=== PATIENT | male | born 1990 | race Caucasian/White ===

== ENCOUNTER 2016-08-06 10:50 | Observation (INO) | payer MEDICAID, OTHER ==
[2016-08-06] MEDS ORDERED: BENADRYL 50 MG/ML ONE (10:57)
[2016-08-06] MEDS ORDERED: Sodium Chloride 0.9% 1000 ML 1,000 ML ONE ×2 (10:57→12:32)
[2016-08-06] MEDS ORDERED: EPINEPHRINE 1:1000 1 ML AMP ONE (10:57)
[2016-08-06] MEDS ORDERED: Pepcid 20 MG VIAL IV ONE ×2 (10:57→11:03)
[2016-08-06] MEDS ORDERED: solu-MEDROL 125 MG ONE (10:57)
[2016-08-06] MEDS ORDERED: Sodium Chloride 0.9% 1000 ML 1,000 ML IV STA ×2 (11:02→12:33)
[2016-08-06] MEDS ORDERED: BENADRYL 50 MG/ML IV ONE ×2 (11:03→11:07)
[2016-08-06] MEDS ORDERED: EPINEPHRINE 1:1000 1 ML AMP IM ONE (11:03)
[2016-08-06] MEDS ORDERED: solu-MEDROL 125 MG IV ONE (11:03)
[2016-08-06 11:07] LABS: VBG BASE EXCESS 0.1 (-2.0-2.0); VBG CARBOXYHEMOGLOBIN 1.8 % T HGB (0.0-6.9); VBG HCO3- 22.1 meq/L (22-28); VBG HEMOGLOBIN 16.6; VBG POTASSIUM 3.6 (3.5-5.1); VBG pH 7.49 (7.32-7.42)
[2016-08-06 11:21] LABS: BASOPHIL % 0.3 % (0.0-0.4); Eosinophil % 0.6 % (0.00-5.0); Granulocytes % 41.8 % (36.0-66.0); Lymphocytes % 50.1 % (24.0-44.0); Mean Cell Volume 88.3 fl (78-100); Mean Corpuscular Hemoglobin 30.4 pg (26-32); Mean Platelet Volume 10.1 fl (6-9.5); Monocytes % 7.2 % (0.0-12.0); Platelet Count 300 K/mm3 (150-450); Red Blood Count 5.29 M/mm3 (4.1-5.6); Red Cell Distribution Width 13.1 % (11.5-14.0); White Blood Count 7.2 K/mm3 (4.0-10.5)
[2016-08-06 11:39] LABS: ALBUMIN 3.9 g/dL (3.4-5.0); ALKALINE PHOSPHATASE 70 U/L (46-116); ANION GAP 17.4 MEQ/L (5-15); BILIRUBIN,TOTAL 0.5 mg/dL (0.2-1.0); BLOOD UREA NITROGEN 13 mg/dL (9-20); CHLORIDE 105 mEq/L (98-107); Carbon Dioxide 20.6 mEq/L (21-32); Glucose 146 MG/DL (70-110); Potassium 3.6 mEq/L (3.5-5.1); SGOT/AST 16 U/L (15-37); SGPT/ALT 18 U/L (12-78); SODIUM 139 mEq/L (136-145); Total Protein 7.5 gm/dL (6.4-8.2)
[2016-08-06 11:40] LABS: ACETAMINOPHEN < 2.0 ug/ml (10-30)
--- NOTE | 2016-08-06 11:46 | ERPHSYRPT ---
- History of Present Illness Time Seen by Provider: 08/06/16 11:02 Source: patient, family (mother) Patient Subjective Stated Complaint: PT REPORTS WAKING UP AARON 0900 WITH A HEADACHE-PT TOOK 2 ASPIRIN-AARON 30 MIN LATER BEGAN HAVING HIVES ET ITCHING-CAME TO THE ED WHERE HE GOT DIZZY IN ER REGISTRATION ET PASSED OUT-REPORTS HITTING HIS HEAD ON THE WALL Triage Nursing Assessment: PT PALE ET DIAPHORETIC UPON ARRIVAL OF ED STAFF-C- COLLAR PLACED ET PT BROUGHT BACK FOR TX-PT A & O X 3-ANSWERING QUESTIONS-RESP EASY ET NONLABORED-PT MOVING ALL EXTREMITIES WITH EASE-PUPILS ROUND ET REACTIVE- PT DENIES ANY PAIN AT THIS TIME Physician History: CC: allergic reaction Hx: 25 y/o patient brought to ER per mother. Apparently had some headache which is not unusual for him. He took 2 asa last night and 3 ASA this AM. He awoke with continued headache. No fever or chills. No N/T/W. No N/V. After taking asa this AM he had redness, itching, and diarrhea. Brought to ER. In [place] he passed out and hit his head on the door frame. Initially stated no neck pain but later had some neck pain. Was brought back to ER. Red and shaking chills. No throat swelling or diff breathing. No wheezing or diff breathing. No hx of anaphylaxis in the past. Mother reported hx of substance use in the past. Pt denies any other ingestion or substance today. Timing/Duration: today Severity: severe Allergies/Adverse Reactions: aspirin Allergy (Severe, Verified 08/06/16 13:01) ANAPHALAXIS Home Medications: No Home Meds 1 ea UD 08/06/16 [History] Hx Tetanus, Diphtheria Vaccination/Date Given: No Hx Influenza Vaccination/Date Given: No Hx Pneumococcal Vaccination/Date Given: No Immunizations Up to Date: Yes - Review of Systems Constitutional: No Fever, No Chills Eyes: No Symptoms Ears, Nose, & Throat: No Symptoms Respiratory: No Cough, No Dyspnea Cardiac: Syncope, No Chest Pain, No Edema Abdominal/Gastrointestinal: Diarrhea, No Abdominal Pain, No Nausea, No Vomiting Genitourinary Symptoms: No Dysuria Skin: No Rash Neurological: No Headache All Other Systems: Reviewed and Negative - Past Medical History Pertinent Past Medical History: No - Past Surgical History Past Surgical History: No - Social History Smoking Status: Never smoker Exposure to second hand smoke: No Drug Use: none Patient Lives Alone: No - Nursing Vital Signs Nursing Vital Signs: Initial Vital Signs Temperature 97.5 F Temperature Source Oral Pulse Rate 86 Respiratory Rate 16 Blood Pressure [Right Arm] 97/56 Pain Intensity 0 - Physical Exam General Appearance: alert Eye Exam: PERRL/EOMI Ears, Nose, Throat Exam: moist mucous membranes Neck Exam: normal inspection, midline tenderness (mild) Respiratory Exam: normal breath sounds, lungs clear, No wheezing Cardiovascular Exam: regular rate/rhythm, No murmur Gastrointestinal/Abdomen Exam: soft, No tenderness, No distention Male Genitalia Exam: normal genitalia Back Exam: normal inspection, No vertebral tenderness Extremity Exam: normal inspection, normal range of motion Neurologic Exam: alert, oriented x 3, cooperative, sensation nml, No motor deficits Skin Exam: warm, dry, rash (redness all over body with urticaria and hives) SpO2 Interpretation: normal SpO2: 97 Oxygen Delivery: Room Air - Course Nursing assessment & vital signs reviewed: Yes EKG Interpreted by Me: RATE (76), Sinus Rhythm, NORMAL AXIS, Right Bundle Branch Block (incomplete), Non-specific ST Changes - Radiology Exams cxr X-ray Interpretation: Reviewed by me, Negative Ordered Tests: Active Orders 24 hr Category Date Time Status Accucheck STAT Care 08/06/16 11:02 Active Associate Professor Of Library Science STAT Care 08/06/16 11:02 Active Cervical Collar Application STAT Care 08/06/16 11:05 Active Clean Catch Urine Specimen STAT Care 08/06/16 11:02 Active EKG-ER Only STAT Care 08/06/16 11:02 Inactive EKG-ER Only STAT Care 08/06/16 11:03 Active EKG-ER Only STAT Care 08/06/16 11:47 Active IV Insertion STAT Care 08/06/16 11:02 Active CERVICAL SPINE WO CONTRAST [CT] Stat Exams 08/06/16 11:04 Completed CHEST 1 VIEW (PORTABLE) Stat Exams 08/06/16 11:03 Completed HEAD WITHOUT CONTRAST [CT] Stat Exams 08/06/16 11:04 Completed ACETAMINOPHEN Stat Lab 08/06/16 11:05 Completed CBC W DIFF Stat Lab 08/06/16 11:05 Completed CMP Stat Lab 08/06/16 11:05 Completed Ethyl Alcohol,Urine Stat Lab 08/06/16 12:00 Completed SALICYLATE Stat Lab 08/06/16 11:05 Completed UA W/ MICROSCOPIC Stat Lab 08/06/16 12:00 Completed Urine Triage Profile Stat Lab 08/06/16 12:00 Completed VENOUS BLOOD GAS Urgent Lab 08/06/16 11:05 Completed Medication Summary Generic Name Dose Route Start Last Admin Trade Name Gerry PRN Reason Stop Dose Admin Sodium Chloride 1,000 mls @ 999 mls/hr 08/06/16 12:33 08/06/16 12:34 Sodium Chloride 0.9% 1000 Ml IV 08/06/16 13:33 999 mls/hr .Q1H1M STA Administration Discontinued Medications Generic Name Dose Route Start Last Admin Trade Name Gerry PRN Reason Stop Dose Admin Diphenhydramine HCl Confirm 08/06/16 10:57 Benadryl 50 Mg/Ml Administered 08/06/16 10:58 Dose 50 mg .ROUTE .STK-MED ONE Diphenhydramine HCl 25 mg 08/06/16 11:03 08/06/16 11:21 Benadryl 50 Mg/Ml IV 08/06/16 11:04 Not Given STAT ONE Diphenhydramine HCl 50 mg 08/06/16 11:07 08/06/16 11:20 Benadryl 50 Mg/Ml IV 08/06/16 11:08 50 mg STAT ONE Administration Epinephrine HCl Confirm 08/06/16 10:57 Epinephrine 1:1000 1 Ml Amp Administered 08/06/16 10:58 Dose 1 mg .ROUTE .STK-MED ONE Epinephrine HCl 0.3 mg 08/06/16 11:03 08/06/16 11:20 Epinephrine 1:1000 1 Ml Amp IM 08/06/16 11:04 0.3 mg STAT ONE Administration Famotidine Confirm 08/06/16 10:57 Pepcid 20 Mg Vial Administered 08/06/16 10:58 Dose 20 mg IV .STK-MED ONE Famotidine 20 mg 08/06/16 11:03 08/06/16 11:20 Pepcid 20 Mg Vial IV 08/06/16 11:04 20 mg STAT ONE Administration Sodium Chloride Confirm 08/06/16 10:57 Sodium Chloride 0.9% 1000 Ml Administered 08/06/16 10:58 Dose 1,000 mls @ ud .ROUTE .STK-MED ONE Sodium Chloride 1,000 mls @ 999 mls/hr 08/06/16 11:02 08/06/16 11:20 Sodium Chloride 0.9% 1000 Ml IV 08/06/16 12:02 999 mls/hr .Q1H1M STA Administration Sodium Chloride Confirm 08/06/16 12:32 Sodium Chloride 0.9% 1000 Ml Administered 08/06/16 12:33 Dose 1,000 mls @ ud .ROUTE .STK-MED ONE Methylprednisolone Sodium Succinate Confirm 08/06/16 10:57 Solu-Medrol 125 Mg Administered 08/06/16 10:58 Dose 125 mg .ROUTE .STK-MED ONE Methylprednisolone Sodium Succinate 125 mg 08/06/16 11:03 08/06/16 11:20 Solu-Medrol 125 Mg IV 08/06/16 11:04 125 mg STAT ONE Administration Lab/Rad Data: Laboratory Result Diagrams 08/06/16 11:05 08/06/16 11:05 Laboratory Results 08/06/16 08/06/16 08/06/16 Range/Units 12:00 12:00 12:00 WBC (4.0-10.5) K/mm3 RBC (4.1-5.6) M/mm3 Hgb (12.5-18.0) gm/dl Hct (42-50) % MCV (78-100) fl MCH (26-32) pg MCHC (32-36) g/dl RDW (11.5-14.0) % Plt Count (150-450) K/mm3 MPV (6-9.5) fl Gran % (36.0-66.0) % Lymphocytes % (24.0-44.0) % Monocytes % (0.0-12.0) % Eosinophils % (0.00-5.0) % Basophils % (0.0-0.4) % Basophils # (0-0.4) VBG pH (7.32-7.42) VBG pCO2 at Pat Temp (42-55) mm/Hg VBG pO2 at Pat Temp (25-40) mm/Hg VBG HCO3 (22-28) meq/L VBG O2 Sat (Ashley) (95-100) VBG Base Excess (-2.0-2.0) VBG Hemoglobin VBG Carboxyhemoglobin (0.0-6.9) % T HGB POC Potassium (3.5-5.1) Sodium (136-145) mEq/L Potassium (3.5-5.1) mEq/L Chloride (98-107) mEq/L Carbon Dioxide (21-32) mEq/L Anion Gap (5-15) MEQ/L BUN (9-20) mg/dL Creatinine (0.55-1.30) mg/dl Estimated GFR ML/MIN Glucose (70-110) MG/DL Calcium (8.5-10.1) mg/dL Total Bilirubin (0.2-1.0) mg/dL AST (15-37) U/L ALT (12-78) U/L Alkaline Phosphatase (46-116) U/L Serum Total Protein (6.4-8.2) gm/dL Albumin (3.4-5.0) g/dL Ur Collection Type VOID Urine Color DARK YELLOW (YELLOW) Urine Appearance HAZY (CLEAR) Urine pH 6.0 6.0 (5-6) Ur Specific [place] 1.025 (1.005-1.025) Urine Protein 30 (Negative) Urine Glucose (UA) NEGATIVE (NEGATIVE) mg/dL Urine Ketones SMALL-15 (NEGATIVE) Urine Nitrite NEGATIVE (NEGATIVE) Urine Bilirubin SMALL (NEGATIVE) Urine Urobilinogen 1 (0-1) mg/dL Urine WBC (Auto) NEGATIVE (NEGATIVE) Urine RBC (Auto) NEGATIVE (0-5) Gray/ul Urine Microscopic RBC 0-2 (0-2) /HPF Urine Microscopic WBC 0-2 (0-5) /HPF Ur Epithelial Cells FEW (FEW) /HPF Urine Bacteria FEW (NEGATIVE) /HPF Urine Mucus MANY (NEGATIVE) /HPF Salicylates (2.8-20.0) mg/dl Urine Opiates Level POS. (NEGATIVE) Ur Methadone NEG. (NEGATIVE) Acetaminophen (10-30) ug/ml Urine Barbiturates NEG. (NEGATIVE) Ur Phencyclidine (PCP) NEG. (NEGATIVE) Urine Amphetamine NEG. (NEGATIVE) U Benzodiazepine Level NEG. (NEGATIVE) Urine Cocaine NEG. (NEGATIVE) Urine Marijuana (THC) NEG. (NEGATIVE) Urine Ethyl Alcohol < 3 (0.00-20) mg/dl Specimen Received 08/06/2016 1238 08/06/16 08/06/16 08/06/16 Range/Units 11:05 11:05 11:05 WBC 7.2 (4.0-10.5) K/mm3 RBC 5.29 (4.1-5.6) M/mm3 Hgb 16.1 (12.5-18.0) gm/dl Hct 46.7 (42-50) % MCV 88.3 (78-100) fl MCH 30.4 (26-32) pg MCHC 34.5 (32-36) g/dl RDW 13.1 (11.5-14.0) % Plt Count 300 (150-450) K/mm3 MPV 10.1 H (6-9.5) fl Gran % 41.8 (36.0-66.0) % Lymphocytes % 50.1 H (24.0-44.0) % Monocytes % 7.2 (0.0-12.0) % Eosinophils % 0.6 (0.00-5.0) % Basophils % 0.3 (0.0-0.4) % Basophils # 0.02 (0-0.4) VBG pH 7.49 H (7.32-7.42) VBG pCO2 at Pat Temp 29 L (42-55) mm/Hg VBG pO2 at Pat Temp 70 H (25-40) mm/Hg VBG HCO3 22.1 (22-28) meq/L VBG O2 Sat (Ashley) 98.0 (95-100) VBG Base Excess 0.1 (-2.0-2.0) VBG Hemoglobin 16.6 VBG Carboxyhemoglobin 1.8 (0.0-6.9) % T HGB POC Potassium 3.6 (3.5-5.1) Sodium 139 (136-145) mEq/L Potassium 3.6 (3.5-5.1) mEq/L Chloride 105 (98-107) mEq/L Carbon Dioxide 20.6 L (21-32) mEq/L Anion Gap 17.4 H (5-15) MEQ/L BUN 13 (9-20) mg/dL Creatinine 1.08 (0.55-1.30) mg/dl Estimated GFR > 60 ML/MIN Glucose 146 H (70-110) MG/DL Calcium 9.2 (8.5-10.1) mg/dL Total Bilirubin 0.5 (0.2-1.0) mg/dL AST 16 (15-37) U/L ALT 18 (12-78) U/L Alkaline Phosphatase 70 (46-116) U/L Serum Total Protein 7.5 (6.4-8.2) gm/dL Albumin 3.9 (3.4-5.0) g/dL Ur Collection Type Urine Color (YELLOW) Urine Appearance (CLEAR) Urine pH (5-6) Ur Specific [place] (1.005-1.025) Urine Protein (Negative) Urine Glucose (UA) (NEGATIVE) mg/dL Urine Ketones (NEGATIVE) Urine Nitrite (NEGATIVE) Urine Bilirubin (NEGATIVE) Urine Urobilinogen (0-1) mg/dL Urine WBC (Auto) (NEGATIVE) Urine RBC (Auto) (0-5) Gray/ul Urine Microscopic RBC (0-2) /HPF Urine Microscopic WBC (0-5) /HPF Ur Epithelial Cells (FEW) /HPF Urine Bacteria (NEGATIVE) /HPF Urine Mucus (NEGATIVE) /HPF Salicylates < 2.8 L (2.8-20.0) mg/dl Urine Opiates Level (NEGATIVE) Ur Methadone (NEGATIVE) Acetaminophen < 2.0 L (10-30) ug/ml Urine Barbiturates (NEGATIVE) Ur Phencyclidine (PCP) (NEGATIVE) Urine Amphetamine (NEGATIVE) U Benzodiazepine Level (NEGATIVE) Urine Cocaine (NEGATIVE) Urine Marijuana (THC) (NEGATIVE) Urine Ethyl Alcohol (0.00-20) mg/dl Specimen Received - Progress Progress Note: 08/06/16 11:44 Pt was assessed and brought back to ER. C-collar placed. PIV placed right hand. IVF bolus given. BP good. Warm blanket. He was given IM epi, IV pepcid, benadryl , steroid. He had improvement. Will get head CT to assess for injury and headache cause. Will get C-spine CT to assess for injury post fall. 08/06/16 11:54 Repeat EKG: NSR. HR 82. QTc 435. QRS [address]-T changes. 08/06/16 12:59 The patient has mildly low BP. IVF bolus given. He has continued to have nonbloody watery diarrhea. This started after his reaction and appears to be related to anaphylaxis. Called Dr Linarse (oc) and will place in tele obs. Discussed with : Vijay Will see patient in: hospital (observation) Counseled pt/family regarding: lab results, diagnosis, need for follow-up, rad results - Departure Time of Disposition: 13:00 Departure Disposition: Observation Clinical Impression: anaphylaxis to aspirin Syncope Qualifiers: Syncope type: unspecified Qualified Code(s): R55 - Syncope and collapse Condition: Stable Critical Care Time: Yes Critical Care Time(excluding separately billable procedures): 30-74 minutes
--- NOTE | 2016-08-06 12:31 | XRAY ---
Indication: Status post fall with head injury. Headache and syncope. Multiple contiguous axial images obtained through the head without contrast. Comparison: None Normal appearing brain parenchyma, ventricles, and bony calvarium. Visualized paranasal sinuses and mastoid air cells are pneumatized and clear. Impression: Normal CT head without contrast exam. CT DI 51.70
--- NOTE | 2016-08-06 12:31 | XRAY ---
Indication: Status post head injury following fall. Headache and syncope. Multiple contiguous axial images obtained through the cervical spine. Sagittal and coronal reformatted images obtained. Comparison: None Axial images negative for acute fracture, suspicious bony lesions, or spinal canal stenosis. Sagittal and coronal reformatted images demonstrate normal alignment. Disc spaces maintained. No acute compression fracture, subluxation, or jumped facet. Normal-appearing craniocervical junction.. Visualized noncontrasted soft tissues including base of the brain and lung apices are unremarkable. Impression: Normal CT cervical spine. CT DI 47.01
--- NOTE | 2016-08-06 12:33 | XRAY ---
Indication: Headache and syncope following fall. Comparison: July 13, 2006. Portable apical lordotic chest again hyperinflated with normal heart, lungs, and bony thorax.
[2016-08-06 12:42] LABS: Collection Type VOID
[2016-08-06 12:43] LABS: Bacteria FEW /HPF (NEGATIVE); COMPLETE URINE MICROSCOPIC? YES; Epithelial Cells FEW /HPF (FEW); Mucus MANY /HPF (NEGATIVE); WBC 0-2 /HPF (0-5)
[2016-08-06] MEDS: Dextrose 5%-Lr IV Solution 1000 ML 1,000 ML IV SCH ×2 (14:02→23:26)
[2016-08-06] MEDS: TYLENOL 325 MG PO PRN ×2 (14:57→23:22)
--- NOTE | 2016-08-06 16:17 | PCM.HP ---
History of Present Illness - Chief Complaint Chief Complaint: Syncope, Anaphylaxis to aspirin History of Present Illness: is a 25 year old male who apparently awoke this morning with a headache , he took 2 aspirin and within 30 minutes developed redness of skin, itching and came to ER. He passed out and hit his head in registration. Has never had a similar episode, was given epinephrine and steroids in ER. Rash has resolved, he had some hypotension in the ER and developed diarrhea which has persisted. - Review of Systems Constitutional: No Fever, No Chills Respiratory: No Cough, No Short Of Breath Cardiac: Syncope, No Chest Pain, No Edema Abdominal/Gastrointestinal: No Abdominal Pain, No Nausea, No Vomiting, No Diarrhea Skin: Pruritis, Rash Neurological: No Dizziness, No Focal Weakness, No Sensory Changes All Other Systems: Reviewed and Negative Medications & Allergies Home Medications: Home Medication List No Home Meds 1 [facility] UD 08/06/16 [History Confirmed 08/06/16] Allergies/Adverse Reactions: Allergies Allergy/AdvReac Type Severity Reaction Status Date / Time aspirin Allergy Severe ANAPHALAXIS Verified 08/06/16 13:01 - Past Medical History Past Medical History: No Neurological History: No Pertinent History ENT History: No Pertinent History Cardiac History: No Pertinent History Respiratory History: No Pertinent History Endocrine Medical History: No Pertinent History Musculoskelatal History: No Pertinent History GI Medical History: No Pertinent History History: No Pertinent History Pyscho-Social History: No Pertinent History Male Reproductive Disorders: No Pertinent History - Past Surgical History Past Surgical History: No Neuro Surgical History: No Pertinent History Cardiac History: No Pertinent History Respiratory Surgery: No Pertinent History GI Surgical History: No Pertinent History Genitourinary Surgical Hx: No Pertinent History Musculskeletal Surgical Hx: No Pertinent History Male Surgical History: No Pertinent History - Social History Smoking Status: Never smoker Exposure to second hand smoke: Yes Alcohol: Occasionally Drug Use: none - Physical Exam Vital Signs: Vital Signs - 24 hr Temp Pulse Resp BP Pulse Ox 08/06/16 13:39 97.4 F 91 H 16 135/80 99 08/06/16 13:34 97.4 F 91 H 16 135/80 99 08/06/16 13:02 97 08/06/16 12:31 86 16 97/56 97 08/06/16 11:01 97.5 F 75 22 124/63 97 08/06/16 11:00 79 22 108/74 96 General Appearance: no apparent distress, alert Neurologic Exam: alert, oriented x 3, cooperative, normal mood/affect, nml cerebellar function, nml station & gait, sensation nml, No motor deficits Eye Exam: PERRL/EOMI, eyes nml inspection Respiratory Exam: normal breath sounds, lungs clear, No respiratory distress Cardiovascular Exam: regular rate/rhythm, normal heart sounds, normal peripheral pulses Gastrointestinal/Abdomen Exam: soft, normal bowel sounds, No tenderness, No mass Extremity Exam: normal inspection, normal range of motion, pelvis stable Skin Exam: normal color, warm, dry, No rash Assessment/Plan (1) Syncope Current Visit: Yes Status: Acute Qualifiers: Syncope type: unspecified Qualified Code(s): R55 - Syncope and collapse Assessment & Plan: monitor on tele, likely due to anaphylaxis. will observe, no rash currently and no complaints. tolerating po, last loose stool was about an hour ago Code(s): R55 - SYNCOPE AND COLLAPSE (2) Anaphylactic reaction Current Visit: Yes Status: Acute Assessment & Plan: continue IV steroids, appears resolved at this time Code(s): T78.2XXA - ANAPHYLACTIC SHOCK, UNSPECIFIED, INITIAL ENCOUNTER (3) Diarrhea Current Visit: Yes Status: Acute Assessment & Plan: continue hydration Code(s): R19.7 - DIARRHEA, UNSPECIFIED
[2016-08-06] MEDS ORDERED: Zofran 4 MG/2 ML VIAL IV PRN (16:18)
[2016-08-06] MEDS: solu-MEDROL 125 MG IV SCH ×2 (17:18→23:21)
[2016-08-06] MEDS: BENADRYL 50 MG/ML IV SCH ×2 (17:18→23:19)
[2016-08-06] MEDS ORDERED: Pepcid 20 MG VIAL IV SCH (22:00)
[2016-08-06] MEDS ORDERED: Ambien 5 MG Tablet PO PRN (23:22)
[2016-08-07] MEDS: solu-MEDROL 125 MG IV SCH (05:32)
[2016-08-07] MEDS: BENADRYL 50 MG/ML IV SCH (05:32)
[2016-08-07 05:49] LABS: BASOPHIL % 0.1 % (0.0-0.4); Granulocytes % 90.5 % (36.0-66.0); Lymphocytes % 8.3 % (24.0-44.0); Mean Cell Volume 91.4 fl (78-100); Mean Corpuscular Hemoglobin 29.9 pg (26-32); Mean Platelet Volume 10.3 fl (6-9.5); Monocytes % 1.1 % (0.0-12.0); Platelet Count 227 K/mm3 (150-450); Red Blood Count 4.28 M/mm3 (4.1-5.6); White Blood Count 14.8 K/mm3 (4.0-10.5)
[2016-08-07 06:00] LABS: ALBUMIN 3.5 g/dL (3.4-5.0); ALKALINE PHOSPHATASE 56 U/L (46-116); ANION GAP 14.2 MEQ/L (5-15); BILIRUBIN,TOTAL 0.2 mg/dL (0.2-1.0); BLOOD UREA NITROGEN 9 mg/dL (9-20); CHLORIDE 108 mEq/L (98-107); Carbon Dioxide 23.7 mEq/L (21-32); Glucose 134 MG/DL (70-110); Potassium 4.3 mEq/L (3.5-5.1); SGOT/AST 12 U/L (15-37); SGPT/ALT 8 U/L (12-78); SODIUM 142 mEq/L (136-145); Total Protein 6.8 gm/dL (6.4-8.2)
[2016-08-07 07:34] VITALS: BP 104/49; PULSE 92; O2SAT 97
--- NOTE | 2016-08-07 08:04 | PCM.DS ---
Discharge Summary Date of Admission: 08/06/16 13:32 Admitting Physician: JOSLYN RECIO Primary Care Provider: WELLINGTON HERNANDEZ Allergies Allergies aspirin Allergy (Severe, Verified 08/06/16 13:01) ANAPHALAXIS Hospital Summary - Hospital Course Hospital Course: patient admitted after syncope from anaphylaxis due to aspirin, has had no issues since admission. no rash now, tolerating po, no vomiting or diarrhea, no difficulty swallowing - Vitals & Intake/Output Vital Signs: Vital Signs Temperature 97.9 F 08/07/16 07:34 Pulse Rate 92 H 08/07/16 07:34 Respiratory Rate 19 08/07/16 07:34 Blood Pressure 104/49 08/07/16 07:34 O2 Sat by Pulse Oximetry 97 08/07/16 07:34 Intake & Output: Intake & Output 08/04/16 08/05/16 08/06/16 08/07/16 11:59 11:59 11:59 11:59 Intake Total 2576 Output Total 400 Balance 2176 Weight 76.317 kg - Lab Result Diagrams: 08/07/16 05:12 08/07/16 05:12 Lab Results-Last 24 Hrs: Lab Results-Last 24 Hours 08/07/16 08/07/16 Range/Units 05:12 05:12 WBC 14.8 H (4.0-10.5) K/mm3 RBC 4.28 (4.1-5.6) M/mm3 Hgb 12.8 (12.5-18.0) gm/dl Hct 39.1 L (42-50) % MCV 91.4 (78-100) fl MCH 29.9 (26-32) pg MCHC 32.7 (32-36) g/dl RDW 13.0 (11.5-14.0) % Plt Count 227 (150-450) K/mm3 MPV 10.3 H (6-9.5) fl Gran % 90.5 H (36.0-66.0) % Lymphocytes % 8.3 L (24.0-44.0) % Monocytes % 1.1 (0.0-12.0) % Eosinophils % 0.0 (0.00-5.0) % Basophils % 0.1 (0.0-0.4) % Basophils # 0.01 (0-0.4) Sodium 142 (136-145) mEq/L Potassium 4.3 (3.5-5.1) mEq/L Chloride 108 H (98-107) mEq/L Carbon Dioxide 23.7 (21-32) mEq/L Anion Gap 14.2 (5-15) MEQ/L BUN 9 (9-20) mg/dL Creatinine 0.95 (0.55-1.30) mg/dl Estimated GFR > 60 ML/MIN Glucose 134 H (70-110) MG/DL Calcium 8.7 (8.5-10.1) mg/dL Total Bilirubin 0.2 (0.2-1.0) mg/dL AST 12 L (15-37) U/L ALT 8 L (12-78) U/L Alkaline Phosphatase 56 (46-116) U/L Serum Total Protein 6.8 (6.4-8.2) gm/dL Albumin 3.5 (3.4-5.0) g/dL Discharge Exam General Appearance: no apparent distress, alert Skin Exam: other (no rashes, multiple tattoos) Eye Exam: PERRL, EOMI, eyes nml inspection Respiratory Exam: normal breath sounds, lungs clear, No respiratory distress Cardiovascular Exam: regular rate/rhythm, normal heart sounds Gastrointestinal/Abdomen Exam: soft, No tenderness, No mass Extremity Exam: normal inspection, normal range of motion Final Diagnosis/Problem List - Final Discharge Diagnosis/Problem (1) Syncope Current Visit: Yes Status: Acute Assessment & Plan: no more issues, nothing on tele. likely related to anaphylaxis (2) Anaphylactic reaction Current Visit: Yes Status: Acute (3) Diarrhea Current Visit: Yes Status: Acute - Discharge Disposition: Home, Self-Care Condition: Stable Prescriptions: New Methylprednisolone [Medrol Dose Pack] 4 mg PO UD #1 pack Continue No Home Meds 1 ea [facility] UD Additional Instructions: take medrol pack, continue benadryl 25mg po q6 hrs prn if any itching or rash Follow up with: WELLINGTON HERNANDEZ MD [Primary Care Provider] -
== END 2016-08-07 09:20 | disposition home or self-care (01) ==
LOC: ED 10:50 → MED SURG 13:32
PROVIDERS: ADMIT Family Medicine; ATTEND Family Medicine
DX: R55 Syncope and collapse (principal); T88.6XXA Anaphylactic reaction due to adverse effect of correct drug or medicament properly administered, initial encounter; T39.015A Adverse effect of aspirin, initial encounter; R19.7 Diarrhea, unspecified
CPT/HCPCS: 36000; 36415; 70450; 71010; 72125; 80053; 80307; 80320; 81000; 82805; 82962; 83986; 85025; 93005; 93041; 93268; 96360; 96372; 96374; 96375; 99285; G0378; G0481; J0171; J1200; J2930; L0172; A9270-GY

== ENCOUNTER 2019-02-19 00:32 | Emergency (ER) | payer SELFPAY ==
--- NOTE | 2019-02-19 00:53 | ERPHSYRPT ---
- History of Present Illness Time Seen by Provider: 02/19/19 00:53 Source: patient ([id number]) Patient Subjective Stated Complaint: Insomnia/Inhaling air duster Triage Nursing Assessment: Patient brought into ED via w/c and transferred self to bed. Patient A+O x3. Patient's skin pale, warm and dry. Patient shaking and shivering. Patient states he has severe insomnia that causes him to lucero air duster. Patient states he huffed air duster 3 hours ago. patient states he has vomiting and nausea all day. Patient states he has not ate in two days. Patient states he was incontinent of bowel and bladder today. Patient states he has not slept in 4 days. 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 Patient denies pain or discomofort. Physician History: patient has a history of drug abuse. The patient says he is not slept a lot for 5 days and he is trying to inhale a hair dust or to go to sleep. Patient is very anxious and shaking in the ER. Timing/Duration: day(s) (5) Severity: severe Modifying Factors: Improves With: nothing Associated Symptoms: nausea, headaches Allergies/Adverse Reactions: aspirin Allergy (Severe, Verified 02/19/19 00:35) [facility] Home Medications: No Home Meds [No Home Meds] 1 [facility] UD 08/06/16 [History] Hx Tetanus, Diphtheria Vaccination/Date Given: No Hx Influenza Vaccination/Date Given: No Hx Pneumococcal Vaccination/Date Given: No Immunizations Up to Date: Yes - Review of Systems Constitutional: Malaise, Night Sweats, No Fever, No Chills Eyes: No Symptoms Ears, Nose, & Throat: No Symptoms Respiratory: No Cough, No Dyspnea Cardiac: No Chest Pain, No Edema, No Syncope Abdominal/Gastrointestinal: No Abdominal Pain, No Nausea, No Vomiting, No Diarrhea Genitourinary Symptoms: Other (patient says I am so exhausted because of the lack of sleep the I am urinating in my pant), No Dysuria Musculoskeletal: No Back Pain, No Neck Pain Skin: No Rash Neurological: No Dizziness, No Focal Weakness, No Sensory Changes Psychological: No Symptoms, Drug Abuse, Anxiety, Emotional Lability Endocrine: No Symptoms All Other Systems: Reviewed and Negative - Past Medical History Pertinent Past Medical History: No Neurological History: No Pertinent History ENT History: No Pertinent History Cardiac History: No Pertinent History Respiratory History: No Pertinent History Endocrine Medical History: No Pertinent History Musculoskeletal History: No Pertinent History GI Medical History: No Pertinent History History: No Pertinent History Psycho-Social History: No Pertinent History Male Reproductive Disorders: No Pertinent History Other Medical History: HEP C, Insomnia - Past Surgical History Past Surgical History: No Neuro Surgical History: No Pertinent History Cardiac: No Pertinent History Respiratory: No Pertinent History Gastrointestinal: Hernia Repair Genitourinary: No Pertinent History Musculoskeletal: No Pertinent History Male Surgical History: No Pertinent History - Social History Smoking Status: Never smoker Exposure to second hand smoke: Yes Drug Use: other Patient Lives Alone: No - Nursing Vital Signs Nursing Vital Signs: Initial Vital Signs Temperature 98.0 F 02/19/19 00:36 Pulse Rate 55 L 02/19/19 00:36 Respiratory Rate 18 02/19/19 00:36 Blood Pressure 119/85 02/19/19 00:36 O2 Sat by Pulse Oximetry 98 02/19/19 00:36 Pain Scale Pain Intensity 0 - Physical Exam General Appearance: no apparent distress, alert, anxiety, other (shaking) Eye Exam: PERRL/EOMI, eyes nml inspection Ears, Nose, Throat Exam: normal ENT inspection, TMs normal, pharynx normal, moist mucous membranes Neck Exam: normal inspection, non-tender, supple, full range of motion Respiratory Exam: normal breath sounds, lungs clear, No respiratory distress Cardiovascular Exam: regular rate/rhythm, normal heart sounds, normal peripheral pulses Gastrointestinal/Abdomen Exam: soft, normal bowel sounds, No tenderness, No mass Back Exam: normal inspection, normal range of motion, No CVA tenderness, No vertebral tenderness Extremity Exam: normal inspection, normal range of motion, pelvis stable Neurologic Exam: alert, oriented x 3, cooperative, nml cerebellar function, nml station & gait, sensation nml, other (anxious, shaking), No motor deficits Skin Exam: normal color, warm, dry, No rash Lymphatic Exam: No adenopathy SpO2: 98 O2 Delivery: Room Air - Course Nursing assessment & vital signs reviewed: Yes Ordered Tests: Active Orders 24 hr Category Date Time Status IV Insertion STAT Care 02/19/19 00:59 Active CMP Stat Lab 02/19/19 00:45 Completed Urine Triage Profile Stat Lab 02/19/19 01:32 Completed Medication Summary Discontinued Medications Generic Name Dose Route Start Last Admin Trade Name Gerry PRN Reason Stop Dose Admin Diphenhydramine HCl 25 mg 02/19/19 02:12 02/19/19 02:20 Benadryl 25 Mg Capsule PO 02/19/19 02:13 25 mg STAT ONE Administration Diphenhydramine HCl Confirm 02/19/19 02:19 Benadryl 25 Mg Capsule Administered 02/19/19 02:20 Dose 25 mg .ROUTE .STK-MED ONE Sodium Chloride 1,000 mls @ 999 mls/hr 02/19/19 00:59 02/19/19 01:10 Sodium Chloride 0.9% 1000 Ml IV 02/19/19 01:59 999 mls/hr .Q1H1M STA Administration Sodium Chloride Confirm 02/19/19 01:04 Sodium Chloride 0.9% 1000 Ml Administered 02/19/19 01:05 Dose 1,000 mls @ ud .ROUTE .STK-MED ONE Lorazepam 1 mg 02/19/19 01:00 02/19/19 01:09 Ativan 2 Mg/1 Ml Vial IV 02/19/19 01:01 1 mg STAT ONE Administration Lorazepam Confirm 02/19/19 01:04 Ativan 2 Mg/1 Ml Vial Administered 02/19/19 01:05 Dose 2 mg .ROUTE .STK-MED ONE Lorazepam 2 mg 02/19/19 02:03 02/19/19 02:11 Ativan 2 Mg/1 Ml Vial IV 02/19/19 02:04 2 mg STAT ONE Administration Lorazepam Confirm 02/19/19 02:07 Ativan 2 Mg/1 Ml Vial Administered 02/19/19 02:08 Dose 2 mg .ROUTE .STK-MED ONE Lab/Rad Data: Laboratory Result Diagrams 02/19/19 00:45 Laboratory Results 02/19/19 02/19/19 Range/Units 01:32 00:45 Sodium 142 (137-145) mmol/L Potassium 3.7 (3.5-5.1) mmol/L Chloride 99 (98-107) mmol/L Carbon Dioxide 25 (22-30) mmol/L Anion Gap 20.9 H (5-15) MEQ/L BUN 15 (9-20) mg/dL Creatinine 1.21 (0.66-1.25) mg/dL Estimated GFR > 60.0 ML/MIN Glucose 187 H (74-106) mg/dL Calcium 9.2 (8.4-10.2) mg/dL Total Bilirubin 0.60 (0.2-1.3) mg/dL AST 28 (17-59) U/L ALT 30 (0-50) U/L Alkaline Phosphatase 132 H (38-126) U/L Serum Total Protein 8.8 H (6.3-8.2) g/dL Albumin 4.7 (3.5-5.0) g/dL Urine Opiates Level NEGATIVE (NEGATIVE) Ur Methadone NEGATIVE (NEGATIVE) Urine Barbiturates NEGATIVE (NEGATIVE) Ur Phencyclidine (PCP) NEGATIVE (NEGATIVE) Urine Amphetamine NEGATIVE (NEGATIVE) U Benzodiazepine Level NEGATIVE (NEGATIVE) Urine Cocaine NEGATIVE (NEGATIVE) Urine Marijuana (THC) NEGATIVE (NEGATIVE) - Progress Progress: improved Counseled pt/family regarding: diagnosis, need for follow-up - Departure Departure Disposition: Home Clinical Impression: Anxiety, Substance abuse Insomnia Qualifiers: Insomnia type: unspecified Qualified Code(s): G47.00 - Insomnia, unspecified Condition: Stable Critical Care Time: No Referrals: WELLINGTON HERNANDEZ MD [Primary Care Provider] - 02/21/19 Instructions: Chemical Ingestion (DC) Prescriptions: Hydroxyzine Pamoate [Vistaril] 25 mg PO TID PRN 5 Days #15 capsule PRN Reason: Insomnia
[2019-02-19] MEDS ORDERED: Sodium Chloride 0.9% 1000 ML 1,000 ML IV STA (00:59)
[2019-02-19] MEDS ORDERED: Ativan 2 MG/1 ML VIAL IV ONE ×2 (01:00→02:03)
[2019-02-19] MEDS ORDERED: Sodium Chloride 0.9% 1000 ML 1,000 ML ONE (01:04)
[2019-02-19] MEDS ORDERED: Ativan 2 MG/1 ML VIAL ONE ×2 (01:04→02:07)
[2019-02-19 01:11] LABS: ALBUMIN 4.7 g/dL (3.5-5.0); ALKALINE PHOSPHATASE 132 U/L (38-126); ANION GAP 20.9 MEQ/L (5-15); BLOOD UREA NITROGEN 15 mg/dL (9-20); CHLORIDE 99 mmol/L (98-107); Calcium 9.2 mg/dL (8.4-10.2); Carbon Dioxide 25 mmol/L (22-30); Creatinine 1 1.21 mg/dL (0.66-1.25); Glucose 187 mg/dL (74-106); Potassium 3.7 mmol/L (3.5-5.1); SGOT/AST 28 U/L (17-59); SGPT/ALT 30 U/L (0-50); SODIUM 142 mmol/L (137-145); Total Protein 8.8 g/dL (6.3-8.2)
[2019-02-19 01:55] LABS: Amphetamine,Urine NEGATIVE (NEGATIVE); Barbiturate,Urine NEGATIVE (NEGATIVE); Benzodiazepine,Urine NEGATIVE (NEGATIVE); Cocaine,Urine NEGATIVE (NEGATIVE); Methadone,Urine NEGATIVE (NEGATIVE); Opiate,Urine NEGATIVE (NEGATIVE); PCP,Urine NEGATIVE (NEGATIVE); THC,Urine NEGATIVE (NEGATIVE)
[2019-02-19] MEDS ORDERED: BENADRYL 25 MG CAPSULE PO ONE (02:12)
[2019-02-19] MEDS ORDERED: BENADRYL 25 MG CAPSULE ONE (02:19)
[2019-02-19 03:56] VITALS: BP 109/61; PULSE 64; O2SAT 97
== END 2019-02-19 03:55 | disposition home or self-care (01) ==
LOC: ED 00:32
DX: F41.9 Anxiety disorder, unspecified (principal); F19.10 Other psychoactive substance abuse, uncomplicated; G47.00 Insomnia, unspecified
CPT/HCPCS: 36000; 36415; 80053; 80307; 96360; 96374; 96375; 96376; 99284; J2060; A9270-GY